=== PATIENT | female | born 1985 | race Caucasian/White ===

== ENCOUNTER 2017-11-26 11:29 | Emergency (ER) | payer SELFPAY | END 2017-11-26 14:30 | disposition home or self-care (01) | LOC: D.ER 11:29 | DX: L02.01 Cutaneous abscess of face (principal); F17.200 Nicotine dependence, unspecified, uncomplicated; R50.9 Fever, unspecified ==

== ENCOUNTER 2017-12-07 17:48 | Emergency (ER) | payer SELFPAY | END 2017-12-07 20:32 | disposition home or self-care (01) | LOC: D.ER 17:48 | DX: M27.2 Inflammatory conditions of jaws (principal) ==

== ENCOUNTER 2017-12-10 16:15 | Emergency (ER) | payer SELFPAY | END 2017-12-10 18:17 | disposition home or self-care (01) | LOC: D.ER 16:15 | DX: L02.01 Cutaneous abscess of face (principal) ==